=== PATIENT | female | born 1980 | race Caucasian/White ===

== ENCOUNTER 2017-05-21 07:32 | Observation (INO) | payer BC ==
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
[2017-05-21 08:59] LABS: Basophils % (A) 1 %; CHCM 34.6; Eosinophils # (A) 0.2 k/uL (0-0.7); Eosinophils % (A) 3 %; HCT 41.6 % (34.0-46.0); HDW 2.64; HGB 14.2 gm/dL (11.4-16.0); Luc # (Auto) 0.07; Luc % (Auto) 1; Lymphocytes # (A) 1.4 k/uL (1.0-4.8); Lymphocytes % (A) 22 %; MCH 28.8 pg (25.0-35.0); MCHC 34.2 g/dL (31.0-37.0); MCV 84.2 fL (80.0-100.0); Mean Platelet Volume 8.3; Monocytes # (A) 0.3 k/uL (0-1.0); Monocytes % (A) 4 %; Neutrophils # (A) 4.5 k/uL (1.3-7.7); Neutrophils % (A) 69 %; RBC 4.93 m/uL (3.80-5.40); RDW 12.9 % (11.5-15.5); WBC 6.5 k/uL (3.8-10.6); WBC (Perox) 6.32
[2017-05-21 09:12] LABS: ALT 24 U/L (9-52); AST 23 U/L (14-36); Alkaline Phosphatase 50 U/L (38-126); Anion Gap 12 mmol/L; Blood Urea Nitrogen 12 mg/dL (7-17); Calcium 9.5 mg/dL (8.4-10.2); Carbon Dioxide 22 mmol/L (22-30); Chloride 108 mmol/L (98-107); Glucose 105 mg/dL (74-99); Magnesium 2.1 mg/dL (1.6-2.3); Non-African American GFR(MDRD) >60 (>60 ml/min/1.73 sqM); Potassium 4.6 mmol/L (3.5-5.1); Sodium 142 mmol/L (137-145); Total Bilirubin 1.2 mg/dL (0.2-1.3); Total Protein 8.1 g/dL (6.3-8.2)
--- NOTE | 2017-05-21 09:18 | XR ---
EXAMINATION TYPE: XR chest 2V DATE OF EXAM: 05/21/2017 HISTORY: Chest Pain. REFERENCE: Previous study dated 12/02/2011. FINDINGS: There is a mild to moderate dextroscoliosis. The lungs are clear. Pleural spaces are clear. Heart size is normal. IMPRESSION: NO ACUTE INTRATHORACIC ABNORMALITY.
[2017-05-21 09:25] LABS: Creatine Kinase 44 U/L (30-135)
[2017-05-21 09:38] LABS: Creatine Kinase MB 0.4 ng/mL (0.0-2.4); Troponin I <0.012 ng/mL (0.000-0.034)
[2017-05-21 10:43] LABS: Partial Thromboplastin Time 24.8 sec (22.0-30.0); Prothrombin Time 10.1 sec (9.0-12.0)
[2017-05-21] MEDS ORDERED: NITROGLYCERIN SL TABS 0.4 MG TAB SUBLINGUAL PRN (11:17)
[2017-05-21] MEDS ORDERED: ASPIRIN 81 MG CHEW PO STA (11:17)
[2017-05-21] MEDS ORDERED: SODIUM CHLORIDE 0.9% 1,000 ML IV ONE (11:19)
[2017-05-21 15:05] LABS: Creatine Kinase 37 U/L (30-135)
[2017-05-21 15:14] LABS: Creatine Kinase MB 0.3 ng/mL (0.0-2.4); Troponin I <0.012 ng/mL (0.000-0.034)
[2017-05-21 21:08] LABS: Creatine Kinase 30 U/L (30-135)
[2017-05-21 21:21] LABS: Creatine Kinase MB 0.3 ng/mL (0.0-2.4); Troponin I <0.012 ng/mL (0.000-0.034)
[2017-05-22 07:26] LABS: Cholesterol 183 mg/dL (<200); HDL Cholesterol 47 mg/dL (40-60); Triglycerides 120 mg/dL (<150)
[2017-05-22 07:38] VITALS: RESP 18
[2017-05-22] MEDS ORDERED: ASPIRIN 325 MG TAB PO SCH (09:00)
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
--- NOTE | 2017-05-22 09:37 | CONS ---
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 The pain came on almost spontaneously without physical activity. She is resting comfortably without symptoms. Initial troponin and EKG are normal. She has a family history of premature CAD and no other risk factors. She does not smoke. Does not have any hyperlipidemia, diabetes or hypertension. PAST MEDICAL HISTORY: Unremarkable for any major medical problems. MEDICATIONS: None. ALLERGIES: None. Review of systems unremarkable other than the above mentioned facts. On examination, blood pressure is 124/70. Pulse rate is about 70 per minute, regular. HEENT: Unremarkable. Fundus was not examined by me. Neck is supple. No JVD. I do not hear a carotid bruit. There is no thyromegaly. Heart exam reveals S1, S2 heard normally without a rub, murmur or gallop. Lungs are clear. Abdomen is soft, nontender. Lower extremities revealed normal pulses. No edema. Central nervous system is normal. EKG revealed sinus mechanism, no acute changes. Initial set of troponin is normal. IMPRESSION: 1. Atypical musculoskeletal chest pain. 2. Family history of coronary artery disease. RECOMMENDATIONS: I am recommending that if the additional troponins are normal , we will perform a stress echo tomorrow morning and if this is normal, she can be discharged with risk factor modifications. Discussed my thoughts in detail with the patient. Thank you very much for the consultation. PHONG
--- NOTE | 2017-05-22 11:39 | ECHOF ---
Referral Reason:chest pain MEASUREMENTS -------- HEIGHT: 167.6 cm WEIGHT: 80.3 kg BP: 138/62 FINDINGS -------- Utilizing the standard Jaison protocol the patient was exercised for 9 minutes, 0 seconds, achieving a maximum heart rate of 182 , which is 99% of predicted maximal heart rate. There was physiologic heart rate and blood pressure response to exercise. Max Heart Rate: 182 % of Max Predicted Heart Rate: 99% Rest Heart Rate: 109 Rest BP: 138/62 Max BP: 145/75 Mets Achieved: 10.3 The test was stopped because of fatigue. This level of exercise represents an average exercise tolerance for age. Sinus rhythm. In response to stress, the ECG showed no ST-T wave changes (see exercise report for details). In response to stress, the ECG showed no ST-T wave changes (see exercise report for details). There were normal blood pressure and heart rate responses to stress. LV size, wall thickness and systolic function are normal, with an EF of 60%. Echo images were acquired at peak stress which demonstrated appropriate augmentation of all left ventricular segments with slight decrease in cavity size. CONCLUSIONS -------- 1. The test was stopped because of fatigue. 2. This level of exercise represents an average exercise tolerance for age. 3. In response to stress, the ECG showed no ST-T wave changes (see exercise report for details). 4. No 2D echocardiographic evidence of inducible ischemia to achieved workload. [employer]: Joaquín Archibald RDCS
[2017-05-22] MEDS ORDERED: MULTIVITAMINS, THERA 1 EACH TAB PO SCH (12:00)
[2017-05-22 12:12] VITALS: BP 124/67; PULSE 87; TEMP 98.5
--- NOTE | 2017-05-22 14:50 | PN ---
This young lady is doing well. No further chest pain. Her feeling of discomfort in the chest has resolved. Her troponins are normal. She is going to have a stress echo today. Her vital signs are stable. There is no JVD or carotid bruit. S1, S2 heard normally. Lungs are clear. Abdomen and lower extremity exam unchanged. Plan is to discharge her if stress echo is normal and follow with her primary care physician. PHONG
--- NOTE | 2017-05-25 11:52 | DS ---
DISCHARGE DIAGNOSES: 1. Atypical chest pain, most likely musculoskeletal in origin. Rule out acute coronary syndrome. Serial EKGs and troponin are negative. The patient had a stress echo which was negative as well. 2. Recent strenuous work by moving stuff in the last few days. 3. Anxiety. 4. Family history of coronary artery disease, age 53 in her father. 5. Occasional ( ). HOSPITAL COURSE: The patient is a 36 year old female without any significant past medical history was admitted to the hospital with chest pain, mid sternal and no associated radiation or sweating ( ) like sensation and also band like across the chest area anteriorly. Lasted about four hours. The patient came to the hospital for evaluation. The patient was telemonitored and serial EKGs and troponins were done which are negative. The patient was seen by cardiology and was recommended stress echo which was done. Stress echo showed appropriate augmentation of all left ventricular segments with slight decrease in cavity site. The patient does have an average exercise tolerance for age. Otherwise, the patient was cleared by cardiology and currently the patient denied any chest pain now. The patient will be discharged home in stable condition. Activity as tolerated. Heart healthy diet. The patient's LDL was found to be 112. Discharge physical examination: A 36 year old female lying in bed comfortably, awake, alert and oriented times three. Appears to be in no apparent distress. VITALS: Blood pressure is 124/67. Pulse 83. Respiratory rate 18. Temperature afebrile. Pulse ox 97% on room air. Laboratory data reviewed. D. Dimer less than 0.17. Troponin times three negative. Electrolytes within normal limits. DISCHARGE MEDICATIONS: Multivitamins one tablet po daily. The patient was advised to follow up with primary care physician in one to two days. Home with self care. Testing procedures are stress echo and cardiology consultation. PHONG
== END 2017-05-22 15:45 | disposition home or self-care (01) ==
LOC: EC 07:32 → 3OBS 11:10
PROVIDERS: ADMIT Internal Medicine; ATTEND Internal Medicine
DX: R07.89 Other chest pain (principal); Z82.49 Family history of ischemic heart disease and other diseases of the circulatory system; R11.0 Nausea; F41.9 Anxiety disorder, unspecified; Z86.32 Personal history of gestational diabetes
CPT/HCPCS: 99285; 36415; 93017; 93350; 85379; 80061; 80053; 82550; 82553; 83735; 84484; 85025; 85610; 85730; 81025; 71020; G0378 ×2; 93005